=== PATIENT | female | born 2000 | race Caucasian/White ===

== ENCOUNTER 2018-05-22 03:25 | Inpatient (IN) | payer MEDICAID ==
[2018-05-22] VITALS (14 sets, daily range): BP systolic 86–137; BP diastolic 41–77
[~2018-05-22] VITALS: Ht 157.5 cm; Wt 48.2 kg
[~2018-05-22 03:25] MED LIST: METO-292 PO
[2018-05-22] MEDS ORDERED: ketorolac tromethamine 15mg/ml inj. IV ONE (03:55)
[2018-05-22] MEDS ORDERED: ondansetron/PF 4mg/2ml inj IV ONE (03:55)
[2018-05-22] MEDS ORDERED: normal saline 1000ML IV soln IVB ONE (03:55)
[2018-05-22 04:07] LABS: BASOPHILS # (AUTO) 0.1 X10'3 (0-0.2); BASOPHILS % (AUTO) 0.5 % (0-1); EOSINOPHILS # (AUTO) 0.5 X10'3 (0-0.9); EOSINOPHILS % (AUTO) 1.8 % (0-6); HEMATOCRIT 41.7 % (35.0-45.0); HEMOGLOBIN 13.8 g/dl (12.0-16.0); LYMPHOCYTES # (AUTO) 2.8 X10'3 (1.1-4.8); LYMPHOCYTES % (AUTO) 10.9 % (21-51); MEAN CORPUSCULAR HGB CONC 33.2 % (33.0-36.5); MEAN CORPUSCULAR VOLUME 87.3 FL (78-98); MEAN PLATELET VOLUME 8.8 FL (7.4-10.4); MONOCYTES # (AUTO) 1.1 X10'3 (0-0.9); NEUTROPHILS # (AUTO) 21.5 X10'3 (1.8-7.7); NEUTROPHILS % (AUTO) 82.8 % (42-75); PLATELET COUNT 298 X10'3 (140-440); RED BLOOD COUNT 4.77 X10'6 (4.20-5.60); RED CELL DISTRIBUTION WIDTH 13.3 % (11.5-14.5)
--- NOTE | 2018-05-22 04:15 | NUR ---
back from CT, got into bed and started dry heaving with clear liq 50 ml emesis "My stomach hurts, it hurts to do anything"
[2018-05-22 04:19] LABS: HCG SERUM QL NEGATIVE
[2018-05-22 04:23] LABS: ALANINE AMINOTRANSFERASE 20 U/L (12-78); ALBUMIN 3.6 G/DL (3.4-5.0); ALKALINE PHOSPHATASE 119 IU/L (20-180); ANION GAP 13 (8-16); ASPARTATE AMINO TRANSFERASE 15 U/L (10-37); BILIRUBIN,TOTAL 0.3 MG/DL (0.1-1.0); BLOOD UREA NITROGEN 12 MG/DL (7-18); BUN/CREATININE RATIO 12.9 (6.6-38.0); CALCIUM 8.5 MG/DL (8.5-10.1); CHLORIDE 105 MMOL/L (99-107); CREATININE 0.93 MG/DL (0.40-0.90); GLUCOSE 104 MG/DL (70-104); LIPASE 117 U/L (73-393); POTASSIUM 3.6 MMOL/L (3.5-5.1); SODIUM 139 MMOL/L (135-145); TOTAL CARBON DIOXIDE 21.4 MMOL/L (24-32); TOTAL PROTEIN 7.3 G/DL (6.4-8.2); eGFR 78 ML/MIN
[2018-05-22] MEDS ORDERED: normal saline 1000ML IV soln IV ONE (04:35)
[2018-05-22] MEDS ORDERED: CefTRIAXone 2gm/D5W 50ml 50 ML IV ONE (04:35)
[2018-05-22] MEDS ORDERED: NO HOME MEDS (04:59)
[2018-05-22 05:03] LABS: TOTAL CELLS COUNTED 100
[2018-05-22 05:04] LABS: PLATELET ESTIMATE NORMAL
[2018-05-22] MEDS ORDERED: piperacillin/tazo 3.375gm/50ml 50 ML IV ONE (05:10)
--- NOTE | 2018-05-22 05:24 | NUR ---
pt up to the BR
[2018-05-22 05:36] LABS: CLARITY,URINE CLEAR (Clear); COLOR,URINE YELLOW (Yellow); GLUCOSE, URINE NEGATIVE (Neg); KETONES,URINE TRACE mg/dl (Neg); LEUKOCYTE ESTERASE ,URINE NEGATIVE (Neg); NITRITES, URINE NEGATIVE (Neg); OCCULT BLOOD,URINE NEGATIVE (Neg); PROTEIN,URINE NEGATIVE (Neg); UROBILINOGEN,URINE 0.2 E.U/dL (0.2-1.0)
[2018-05-22 05:37] LABS: UA COLLECTION TYPE CLN CATCH MIDSTREAM
--- NOTE | 2018-05-22 06:01 | NUR ---
Ultrasound in the room currently
[2018-05-22] MEDS ORDERED: magnesium 2GM in 50ml NS 50 ML IV PRN (07:30)
[2018-05-22] MEDS ORDERED: potassium Cl 40MEQ/NS 500ml 500 ML IV PRN ×2 (07:30)
[2018-05-22] MEDS ORDERED: magnesium 4gm in 100ml NS 100 ML IV PRN (07:30)
[2018-05-22] MEDS ORDERED: magnesium Cl slow-release 64mg tablet PO PRN (07:30)
[2018-05-22] MEDS ORDERED: ondansetron/PF 4mg/2ml inj IV PRN ×3 (07:30→20:25)
[2018-05-22] MEDS ORDERED: potassium Cl 20 mEq SR tablet PO PRN ×2 (07:30)
[2018-05-22] MEDS: K and/or MAG REPLACEMENT MC SCH (08:00)
[2018-05-22] MEDS: normal saline 1000ml 1,000 ML IV SCH ×3 (08:14→21:54)
[2018-05-22] MEDS ORDERED: diatr meglu/diatrizoate 30ml oral sol.-(3 dose) bottle PO SCH ×3 (08:40→09:00)
--- NOTE | 2018-05-22 08:55 | NUR ---
Received report from ER nurseTracy.
[2018-05-22] MEDS: diatr meglu/diatrizoate 30ml oral sol.-(3 dose) bottle PO SCH ×3 (08:59→15:30)
--- NOTE | 2018-05-22 09:30 | NUR ---
Patient received from ER. Unsure exactly when the patient got here because ER dropped her off and didn't notify anyone. She is alert and oriented. Did not do 2RN skin check because the patient is a 17th year old female and has very intact skin.
[2018-05-22] MEDS: piperacillin/tazo 3.375gm/50ml 50 ML IV SCH ×2 (11:28→21:53)
[2018-05-22] MEDS ORDERED: iohexol 300mg/ml 100ml inj. ONE (15:26)
--- NOTE | 2018-05-22 15:35 | NUR ---
Patient to CT scan.
--- NOTE | 2018-05-22 18:00 | NUR ---
Problems reprioritized. Patient report given, questions answered & plan of care reviewed with TRISTON Loya.
--- NOTE | 2018-05-22 18:05 | NUR ---
Gave report to TRISTON Hardwick in Recovery.
[2018-05-22] MEDS ORDERED: BUPIVAcaine/PF 2.5mg/ml (0.25%) 10ml vial ONE (18:47)
--- NOTE | 2018-05-22 18:47 | NUR ---
Patient in room PACU 2. I have received report from Cait GOLDSTEIN and had the opportunity to ask questions and assume patient care. At the time of report the pt was leaving on her bed to surgery.
[2018-05-22] MEDS ORDERED: ringers solution, lacted 1,000 ML IV SCH (18:55)
[2018-05-22] MEDS ORDERED: HYDROmorphone inj. 0.5 MG/0.5 ML DISP.SYRIN IV PRN ×2 (18:55)
[2018-05-22] MEDS ORDERED: meperidine/PF 25mg/ml syringe IV PRN (18:55)
[2018-05-22] MEDS ORDERED: midazolam 2 mg/2 ml injection ONE (19:06)
[2018-05-22] MEDS ORDERED: fentaNYL/PF 50MCG/1 ML 2ML syringe ONE ×2 (19:06→20:14)
[2018-05-22] MEDS ORDERED: LIDOcaine 2% (20mg/ml) 5ml vial ONE (19:07)
[2018-05-22] MEDS ORDERED: propofol inj 20 ML IV ONE (19:07)
[2018-05-22] MEDS ORDERED: rocuronium 10mg/ml inj IV ONE (19:07)
[2018-05-22] MEDS ORDERED: sevoflurane 250ml liquid IH ONE (19:09)
[2018-05-22] MEDS ORDERED: dexamethasone sod phosphate 10mg/ml inj ONE (19:09)
--- NOTE | 2018-05-22 20:25 | NUR ---
Received from OR via BED , accompanied by Anesthesiologist DR WHITAKER and report given by Anesthesiolgist. PATIENT WAKING UP, C/O PAIN SEE EMAR, V/S WNL, NEUROVASCULAR CHECKS INTACT, 20G PIV LUE, SCD ON, 3 BANDAIDS TO LAP SIGHTS OF ABDOMEN CDI
[2018-05-22] MEDS: meperidine/PF 25mg/ml syringe IV PRN ×2 (20:31→20:38)
[2018-05-22] MEDS: ketorolac trometh. 30mg/ml inj. IV PRN (20:32)
[2018-05-22] MEDS ORDERED: neostigmine methylsulfate 1 MG/ML 10ml vial ONE (20:37)
[2018-05-22] MEDS ORDERED: ondansetron/PF 4mg/2ml inj ONE (20:37)
[2018-05-22] MEDS ORDERED: atropine 0.4 mg/ml 20ml vial ONE (20:37)
[2018-05-22] MEDS ORDERED: glycopyrrolate 0.2mg/ml inj ONE (20:37)
--- NOTE | 2018-05-22 20:55 | NUR ---
PATIENT WAKING UP, C/O PAIN SEE EMAR, V/S WNL, NEUROVASCULAR CHECKS INTACT, 20G PIV LUE, SCD ON, 3 BANDAIDS TO LAP SIGHTS OF ABDOMEN CDI. PATIENT TAKEN TO SURGICAL WITH ALL BELONGINGS AND HOOKED UP TO MONITORS IN ROOM AND REPORT GIVEN TO RN WHO HAS TAKEN OVER PATIENT CARE.
--- NOTE | 2018-05-22 20:59 | NUR ---
PATIENT A&OX4
--- NOTE | 2018-05-22 21:00 | NUR ---
Received report from Ronen GOLDSTEIN in PACU. Pt arrived back on the unit A/O with significant other at bedside. VSS. IV has LR @80 running. 3 band-aids to the belly. No signs of distress, will continue to monitor.
[2018-05-22] MEDS: HYDROcodone/acetaminophen 5mg/325mg tablet PO PRN (21:53)
[2018-05-23 00:45] VITALS: BP 104/52
[2018-05-23] MEDS: piperacillin/tazo 3.375gm/50ml 50 ML IV SCH ×4 (02:14→19:39)
[2018-05-23] MEDS: ketorolac trometh. 30mg/ml inj. IV PRN ×2 (03:04→19:38)
[2018-05-23 05:55] LABS: BASOPHILS % (AUTO) 0.1 % (0-1); EOSINOPHILS # (AUTO) 0.1 X10'3 (0-0.9); EOSINOPHILS % (AUTO) 0.6 % (0-6); HEMATOCRIT 36.2 % (35.0-45.0); LYMPHOCYTES % (AUTO) 10.6 % (21-51); MEAN CORPUSCULAR HGB CONC 33.1 % (33.0-36.5); MEAN CORPUSCULAR VOLUME 87.5 FL (78-98); MEAN PLATELET VOLUME 8.9 FL (7.4-10.4); MONOCYTES # (AUTO) 0.2 X10'3 (0-0.9); MONOCYTES % (AUTO) 2.3 % (2-12); NEUTROPHILS # (AUTO) 7.8 X10'3 (1.8-7.7); NEUTROPHILS % (AUTO) 86.4 % (42-75); PLATELET COUNT 226 X10'3 (140-440); RED BLOOD COUNT 4.14 X10'6 (4.20-5.60); RED CELL DISTRIBUTION WIDTH 13.1 % (11.5-14.5); WHITE BLOOD COUNT 9.1 X10'3 (4.5-11.0)
[2018-05-23 06:23] LABS: ANION GAP 14 (8-16); BLOOD UREA NITROGEN 8 MG/DL (7-18); BUN/CREATININE RATIO 9.2 (6.6-38.0); CALCIUM 8.4 MG/DL (8.5-10.1); CHLORIDE 105 MMOL/L (99-107); CREATININE 0.87 MG/DL (0.40-0.90); GLUCOSE 92 MG/DL (70-104); MAGNESIUM 1.6 MG/DL (1.5-2.4); POTASSIUM 4.2 MMOL/L (3.5-5.1); SODIUM 139 MMOL/L (135-145); TOTAL CARBON DIOXIDE 20.1 MMOL/L (24-32); eGFR 84 ML/MIN
--- NOTE | 2018-05-23 06:31 | NUR ---
Problems reprioritized. Patient report given, questions answered & plan of care reviewed with Michelle GOLDSTEIN. Pt was alert and playing on her phone when we entered the room. IV infusing NS @ 100. Pt has no signs of distress.
--- NOTE | 2018-05-23 06:33 | NUR ---
Patient in room [facility] 357. I have received report from TRISTON BLUNT and had the opportunity to ask questions and assume patient care.
[2018-05-23] MEDS: HYDROcodone/acetaminophen 5mg/325mg tablet PO PRN ×4 (06:44→23:13)
[2018-05-23] MEDS: normal saline 1000ml 1,000 ML IV SCH ×2 (07:08→17:08)
[2018-05-23] MEDS: K and/or MAG REPLACEMENT MC SCH (08:00)
[2018-05-23 08:14] VITALS: BP 95/52
[2018-05-23] MEDS ORDERED: pneumococcal 23-VAL P-sac vacc 25 mcg/0.5ml vial IMVAC ONE (10:00)
[2018-05-23 12:05] VITALS: BP 101/48
--- NOTE | 2018-05-23 13:32 | NUR ---
Dr. Hussein in to see patient. Boyfriend at bedside.
--- NOTE | 2018-05-23 18:30 | NUR ---
Patient in room [facility] 357. I have received report from Michelle Silva and had the opportunity to ask questions and assume patient care.
[2018-05-23 19:30] VITALS: BP 107/61
[2018-05-24] VITALS: BP 113/71
[2018-05-24] MEDS: piperacillin/tazo 3.375gm/50ml 50 ML IV SCH ×3 (02:50→14:00)
[2018-05-24] MEDS: normal saline 1000ml 1,000 ML IV SCH ×2 (03:08→08:16)
[2018-05-24] MEDS: HYDROcodone/acetaminophen 5mg/325mg tablet PO PRN ×2 (04:46→11:46)
[2018-05-24 05:55] LABS: BASOPHILS % (AUTO) 0.4 % (0-1); EOSINOPHILS # (AUTO) 0.2 X10'3 (0-0.9); EOSINOPHILS % (AUTO) 3.3 % (0-6); HEMOGLOBIN 11.2 g/dl (12.0-16.0); LYMPHOCYTES # (AUTO) 3.3 X10'3 (1.1-4.8); LYMPHOCYTES % (AUTO) 47.6 % (21-51); MEAN CORPUSCULAR HEMOGLOBIN 28.9 PG (27.0-31.0); MEAN CORPUSCULAR VOLUME 87.6 FL (78-98); MEAN PLATELET VOLUME 9.2 FL (7.4-10.4); MONOCYTES # (AUTO) 0.5 X10'3 (0-0.9); MONOCYTES % (AUTO) 7.9 % (2-12); NEUTROPHILS # (AUTO) 2.8 X10'3 (1.8-7.7); NEUTROPHILS % (AUTO) 40.8 % (42-75); PLATELET COUNT 203 X10'3 (140-440); RED BLOOD COUNT 3.88 X10'6 (4.20-5.60); RED CELL DISTRIBUTION WIDTH 13.4 % (11.5-14.5); WHITE BLOOD COUNT 6.9 X10'3 (4.5-11.0)
[2018-05-24 06:07] LABS: ALBUMIN 2.7 G/DL (3.4-5.0); ANION GAP 10 (8-16); BLOOD UREA NITROGEN 8 MG/DL (7-18); BUN/CREATININE RATIO 8.5 (6.6-38.0); CALCIUM 8.1 MG/DL (8.5-10.1); CHLORIDE 108 MMOL/L (99-107); CREATININE 0.94 MG/DL (0.40-0.90); GLUCOSE 93 MG/DL (70-104); MAGNESIUM 1.7 MG/DL (1.5-2.4); POTASSIUM 3.7 MMOL/L (3.5-5.1); SODIUM 142 MMOL/L (135-145); TOTAL CARBON DIOXIDE 23.7 MMOL/L (24-32); eGFR 77 ML/MIN
--- NOTE | 2018-05-24 06:30 | NUR ---
Problems reprioritized. Patient report given, questions answered & plan of care reviewed with Darryn RN.
--- NOTE | 2018-05-24 06:45 | NUR ---
Patient in room [facility]NA[facility] 357. I have received report from Giulia GOLDSTEIN and had the opportunity to ask questions and assume patient care.
[2018-05-24 07:46] VITALS: BP 105/67
[2018-05-24] MEDS: K and/or MAG REPLACEMENT MC SCH (08:00)
[2018-05-24] MEDS ORDERED: HYDR-4383 PO (10:41)
[2018-05-24 11:41] VITALS: BP 137/79
--- NOTE | 2018-05-24 13:30 | NUR ---
Patient discharge was done with significant other in the room, Patient expressed verbal understanding of discharge teaching. Patient was educated on surgical procedure and care after patient was also educated on medication that was delivered at bedside via [facility] bedside services. Patient was given a excuse from work up to the date of follow up with surgeon. Patient IV taken out at this time and site showed minimal bleeding and canula was whole and intact upon removal. Patient was educated on signs and symptoms of infection and encouraged to return to ER if suspected infection occurs. Patient transported home via private vehicle.
== END 2018-05-24 14:42 | disposition home or self-care (01) | DRG 234 ==
LOC: ER 03:30 → ED HOLD 07:29 → SUR 3N 09:23 → PACU 18:22 → SUR 3N 22:00
PROVIDERS: ADMIT Internal Medicine; ATTEND Surgery
PROC: BW211ZZ Computerized Tomography (CT Scan) of Abdomen and Pelvis using Low Osmolar Contrast (ICD-10-PCS; 2018-05-22)
PROC: 0DTJ4ZZ Resection of Appendix, Percutaneous Endoscopic Approach (ICD-10-PCS; principal; 2018-05-22 19:09)
PROC: 3E0234Z Introduction of Serum, Toxoid and Vaccine into Muscle, Percutaneous Approach (ICD-10-PCS; 2018-05-23)
DX: K35.80 Unspecified acute appendicitis (principal); F12.90 Cannabis use, unspecified, uncomplicated; F17.210 Nicotine dependence, cigarettes, uncomplicated; N89.8 Other specified noninflammatory disorders of vagina; Z87.442 Personal history of urinary calculi; Z88.6 Allergy status to analgesic agent; Z23 Encounter for immunization
CPT/HCPCS: 36415; 74176; 74177; 76856; 80048; 80053; 81003; 83605; 83690; 83735; 84145; 84703; 85025; 87040; 87070; 90732; 96365; 96367; 96375; 99285; A4315; A7000; G0378; J0461; J0696; J1100; J1885; J2001; J2175; J2250; J2405; J2543; J2704; J2710; J3010; J3490; J7030; J7120; Q9963; Q9967

== ENCOUNTER 2018-09-19 03:03 | Emergency (ER) | payer MEDICAID, OTHER ==
[~2018-09-19] VITALS: Ht 157.5 cm; Wt 45.9 kg
[~2018-09-19 03:03] MED LIST changes: +HYDR-4383 PO; +IBUP-1985 PO; -METO-292 PO
[2018-09-19 04:33] VITALS: BP 111/61
== END 2018-09-19 04:34 | disposition home or self-care (01) ==
LOC: ER 03:04
DX: R41.82 Altered mental status, unspecified (principal); T50.995A Adverse effect of other drugs, medicaments and biological substances, initial encounter; F10.929 Alcohol use, unspecified with intoxication, unspecified; R56.9 Unspecified convulsions; F12.90 Cannabis use, unspecified, uncomplicated; Z88.5 Allergy status to narcotic agent; Z79.899 Other long term (current) drug therapy; Z98.890 Other specified postprocedural states; Y90.9 Presence of alcohol in blood, level not specified; Y92.89 Other specified places as the place of occurrence of the external cause
CPT/HCPCS: 99284

== ENCOUNTER 2019-01-08 03:19 | Emergency (ER) | payer MEDICAID, OTHER ==
[~2019-01-08] VITALS: Ht 157.5 cm; Wt 56.8 kg
[2019-01-08] MEDS ORDERED: LIDOcaine 1% w/epiNEPHrine 1:200,000 30ml vial IM ONE (03:25)
--- NOTE | 2019-01-08 03:42 | NUR ---
PT MOTHER PHONE NUMBER: [phone]
[2019-01-08 03:45] LABS: URINE HCG NEGATIVE (NEG)
[2019-01-08 03:58] LABS: URINE AMPHETAMINE SCREEN NEGATIVE (Neg); URINE BARBITUATE SCREEN NEGATIVE (Neg); URINE BENZODIAZEPINES SCREEN NEGATIVE (Neg); URINE CANNABINOID SCREEN POSITIVE (Neg); URINE COCAINE SCREEN NEGATIVE (Neg); URINE METHADONE SCREEN NEGATIVE (Neg); URINE OPIATE SCREEN NEGATIVE (Neg); URINE PHENCYCLIDINE SCREEN NEGATIVE (Neg)
--- NOTE | 2019-01-08 04:00 | NUR ---
SEVERAL ATTEMPS MADE TO CONTACT PATIENT'S MOTHER. MSG LEFT NO REPLY.
[2019-01-08 04:03] LABS: BASOPHILS % (AUTO) 0.2 % (0-1); EOSINOPHILS # (AUTO) 0.1 X10'3 (0-0.9); EOSINOPHILS % (AUTO) 0.5 % (0-6); HEMATOCRIT 42.3 % (35.0-45.0); HEMOGLOBIN 13.7 g/dl (12.0-16.0); LYMPHOCYTES # (AUTO) 3.3 X10'3 (1.1-4.8); LYMPHOCYTES % (AUTO) 21.6 % (21-51); MEAN CORPUSCULAR HEMOGLOBIN 29.6 PG (27.0-31.0); MEAN CORPUSCULAR HGB CONC 32.4 g/dL (33.0-36.5); MEAN CORPUSCULAR VOLUME 91.5 FL (78-98); MONOCYTES # (AUTO) 0.9 X10'3 (0-0.9); MONOCYTES % (AUTO) 6.1 % (2-12); NEUTROPHILS # (AUTO) 10.8 X10'3 (1.8-7.7); NEUTROPHILS % (AUTO) 71.6 % (42-75); PLATELET COUNT 239 X10'3 (140-440); RED BLOOD COUNT 4.63 X10'6 (4.20-5.60); RED CELL DISTRIBUTION WIDTH 13.8 % (11.5-14.5); WHITE BLOOD COUNT 15.1 X10'3 (4.5-11.0)
[2019-01-08 04:15] LABS: ALANINE AMINOTRANSFERASE 16 U/L (12-78); ALBUMIN 3.6 G/DL (3.4-5.0); ALKALINE PHOSPHATASE 97 IU/L (20-180); ANION GAP 11 (8-16); ASPARTATE AMINO TRANSFERASE 9 U/L (10-37); BILIRUBIN,TOTAL 0.2 MG/DL (0.1-1.0); BLOOD UREA NITROGEN 8 MG/DL (7-18); BUN/CREATININE RATIO 9.4 (6.6-38.0); CALCIUM 8.2 MG/DL (8.5-10.1); CHLORIDE 114 MMOL/L (99-107); CREATININE 0.85 MG/DL (0.40-0.90); GLUCOSE 81 MG/DL (70-104); POTASSIUM 3.5 MMOL/L (3.5-5.1); SODIUM 146 MMOL/L (135-145); TOTAL CARBON DIOXIDE 21.3 MMOL/L (24-32); TOTAL PROTEIN 7.2 G/DL (6.4-8.2); eGFR 85 ML/MIN
[2019-01-08 04:19] LABS: CLARITY,URINE CLEAR (Clear); COLOR,URINE STRAW (Yellow); GLUCOSE, URINE NEGATIVE (Neg); KETONES,URINE NEGATIVE (Neg); LEUKOCYTE ESTERASE ,URINE NEGATIVE (Neg); NITRITES, URINE NEGATIVE (Neg); OCCULT BLOOD,URINE NEGATIVE (Neg); PROTEIN,URINE NEGATIVE (Neg); UROBILINOGEN,URINE 0.2 E.U/dL (0.2-1.0)
[2019-01-08 04:21] LABS: UA COLLECTION TYPE VOIDED
[2019-01-08 04:26] LABS: ETHANOL 0.148 GM/DL (0.0-0.010)
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
--- NOTE | 2019-01-08 07:31 | NUR ---
FAXED PACKET TO [facility]
[2019-01-08] MEDS ORDERED: LIDOcaine 1% w/EPI 1:100,000 30ml vial (MDV) ONE (08:00)
--- NOTE | 2019-01-08 08:41 | NUR ---
MOM CAME IN TO VISIT PATIENT AND WAS HERE FOR ABOUT 30" TALKING WITH HER DAUGHTER. THEY SEEMED TO HAVE A GOOD INTERACTION, CALM.
--- NOTE | 2019-01-08 10:18 | NUR ---
PT IS SITTING UP IN BED, NO S/S OF AGITATION OBSERVED, WILL CONTINUE TO MONITOR
--- NOTE | 2019-01-08 10:37 | NUR ---
VISITORS AT BEDSIDE, PT IS IN THE BATHROOM
--- NOTE | 2019-01-08 12:07 | NUR ---
breaking primary RN, pt is prone, to right side, no s/s of distress, appears to be sleeping, regular spontaneous breathing observed
--- NOTE | 2019-01-08 15:23 | NUR ---
spoke with Shavonne, nurse from [facility], went over the patients information and answered her questions regarding her health history etc. She is being currently considered for placement there. She was also complaining of some generalized pain and some pain at the site of her laceration. I spoke with Dr Iglesias and obtained an order for some ibuprofen
[2019-01-08] MEDS ORDERED: ibuprofen tablet 400 MG TABLET PO ONE (15:25)
--- NOTE | 2019-01-08 17:45 | NUR ---
MANUSCRIPT EDITOR TIME FOR [facility] IS 1830 THIS EVENING. I HAVE LET THE PATIENT KNOW AND SHE HAS INFORMED THE REST OF HER FAMILY. SHE HAS HAD A LOT OF VISITORS ALL DAY LONG. SHE SEEMS TO BE OK WITH GOING TO [facility], SHE DID NOT HAVE ANY QUESTIONS ABOUT THE FACILITY OR WHY SHE IS GOING AND SHE ONLY WANTED TO KNOW WHERE IT IS.
[2019-01-08 19:05] VITALS: BP 119/50
== END 2019-01-08 19:11 ==
LOC: ER 03:20
DX: S71.111A Laceration without foreign body, right thigh, initial encounter (principal); F12.90 Cannabis use, unspecified, uncomplicated; F31.9 Bipolar disorder, unspecified; Z87.442 Personal history of urinary calculi; Z98.890 Other specified postprocedural states; Z88.5 Allergy status to narcotic agent; Z79.899 Other long term (current) drug therapy; Z91.5 Personal history of self-harm; X78.8XXA Intentional self-harm by other sharp object, initial encounter; Y93.89 Activity, other specified; Y92.89 Other specified places as the place of occurrence of the external cause; Y99.8 Other external cause status
CPT/HCPCS: 12004; 36415; 80053; 80305; 80320; 81003; 81025; 84443; 85025; 99285

== ENCOUNTER 2024-02-13 10:21 | Outpatient (CLI) | payer MEDICAID | END 2024-02-13 23:59 | disposition home or self-care (01) | LOC: MRI02 10:21 | PROVIDERS: ATTEND Nurse Practitioner Family | DX: M25.462 Effusion, left knee (principal); M25.562 Pain in left knee | CPT/HCPCS: 73721 ==